=== PATIENT | male | born 1980 | race Caucasian/White ===

== ENCOUNTER → 2019-12-21 | Outpatient (REF) | payer OTHER | LOC: M SFHCLERA 13:28 | PROVIDERS: ATTEND Nurse Practitioner Family | DX: R68.89 Other general symptoms and signs (principal) ==

== ENCOUNTER → 2019-12-21 | Outpatient (CLI) | payer OTHER ==
--- NOTE | 2019-12-21 16:26 | REP ---
CHEST, TWO VIEWS: Two views of the chest are performed. There are no prior studies. FINDINGS: There is dense peripheral infiltrate in the right middle lobe. The left lung is clear. Heart is normal in size. Mediastinal silhouette is unremarkable. Visualized osseous structures are unremarkable. IMPRESSION: Dense peripheral infiltrate right middle lobe. Electronically Signed by Elian Harris MD 12/22/2019 09:30 A
== END ==
LOC: M LRY 13:12
PROVIDERS: ATTEND Nurse Practitioner Family
DX: R68.89 Other general symptoms and signs (principal)
CPT/HCPCS: 71046; 87804; 87880; G0463